=== PATIENT | male | born 1945 | race African-American/Black ===

== ENCOUNTER 2019-08-19 18:44 | Inpatient (IN) | payer OTHER, MEDICAID ==
[~2019-08-19] VITALS: Ht 172.7 cm; Wt 59.0 kg
[2019-08-19 18:49] VITALS: BP_SYST 104
[2019-08-19] MEDS ORDERED: ASPI-1153 PO (20:48)
[2019-08-19] MEDS ORDERED: MULT-976 PO (20:48)
[2019-08-19] MEDS ORDERED: DOCU-144 PO (20:48)
[2019-08-19] MEDS ORDERED: POTA20PA30 PO (20:48)
[2019-08-19] MEDS ORDERED: ASCO500T20 PO (20:48)
[2019-08-19] MEDS ORDERED: FINA5TAB3 PO (20:48)
[2019-08-19] MEDS ORDERED: MAGN400T10 PO (20:48)
[2019-08-19] MEDS ORDERED: TRAM50TA2 PO (20:48)
[2019-08-19] MEDS ORDERED: calcium carbonate PO (20:48)
[2019-08-19] MEDS ORDERED: LOVI30 SQ (20:48)
[2019-08-19] MEDS ORDERED: GABA-529 PO (20:48)
[2019-08-19] MEDS ORDERED: SPIR50TA PO (20:48)
[2019-08-19] MEDS ORDERED: POLY17PO4 PO (20:48)
[2019-08-19] MEDS ORDERED: MYL80 PO (20:48)
[2019-08-19 20:59] LABS: BASOPHILS % (AUTO) 0.4 % (0.0-2.0); EOSINOPHILS # (AUTO) 0.1 K/uL (0.0-0.4); EOSINOPHILS % (AUTO) 1.1 % (0.0-4.0); HEMATOCRIT 32.9 % (36-54); LYMPHOCYTES # (AUTO) 0.9 K/uL (1.0-5.5); LYMPHOCYTES % (AUTO) 12.6 % (20.5-51.5); MEAN CORPUSCULAR HEMOGLOBIN 28 pg (27-31); MEAN CORPUSCULAR HGB CONC 30 % (32-36); MEAN CORPUSCULAR VOLUME 91 fL (79.0-98.0); MONOCYTES # (AUTO) 0.5 K/uL (0.0-1.0); MONOCYTES % (AUTO) 6.4 % (1.7-9.3); NEUTROPHILS # (AUTO) 5.7 K/uL (1.8-7.7); NEUTROPHILS % (AUTO) 79.5 % (40.0-70.0); PLATELET COUNT (AUTO) 254 K/uL (130-430); RED BLOOD CELL COUNT(AUTO) 3.61 MIL/uL (4.2-6.2); RED CELL DISTRIBUTION WIDTH 16.8 % (9.0-15.0); WHITE BLOOD COUNT (AUTO) 7.2 K/uL (4.8-10.8)
[2019-08-19 21:20] LABS: ANION GAP 8 (5-15); CHLORIDE 107 mmol/L (98-107); CREATININE 1.54 mg/dL (0.55-1.30); GLUCOSE 126 mg/dL (70-99); POTASSIUM 5.3 mmol/L (3.5-5.1); SODIUM SERUM 139 mmol/L (136-145); UREA NITROGEN, BLOOD 33 mg/dL (8-21)
[2019-08-19 21:26] LABS: ALANINE AMINOTRANSFERASE 12 U/L (12-78); ALBUMIN 2.7 g/dL (3.4-4.8); ASPARTATE AMINOTRANSFERASE 14 U/L (10-37); TOTAL BILIRUBIN 0.3 mg/dL (0.0-1.0)
[2019-08-19 23:46] VITALS: BP_SYST 106
[2019-08-20] MEDS ORDERED: LevALBUTEROL HCL 1.25 MG/0.5 ML *CONC.* VIAL.NEB (XOPENEX CONC.) INH PRN (00:30)
[2019-08-20] MEDS ORDERED: PIPERACILLIN/TAZOBACTAM 3.375 GM/VIAL (ZOSYN) IV ONE (01:16)
[2019-08-20] MEDS: 0.45% NACL 1,000 ML IV SCH ×2 (01:31→12:56)
[2019-08-20] MEDS: PIPERACILLIN/TAZO 3.375/DEX-IS 50 ML IV SCH ×4 (01:32→17:50)
[2019-08-20] MEDS: traMADol HCL HCL 50 MG TABLET (ULTRAM) PO PRN (01:32)
[2019-08-20 02:17] VITALS: BP_SYST 105
[2019-08-20 06:26] LABS: BASOPHILS % (AUTO) 0.4 % (0.0-2.0); EOSINOPHILS % (AUTO) 0.8 % (0.0-4.0); HEMATOCRIT 30.9 % (36-54); HEMOGLOBIN 9.4 g/dL (14.0-18.0); LYMPHOCYTES # (AUTO) 1.1 K/uL (1.0-5.5); LYMPHOCYTES % (AUTO) 20.7 % (20.5-51.5); MEAN CORPUSCULAR HEMOGLOBIN 28 pg (27-31); MEAN CORPUSCULAR HGB CONC 30 % (32-36); MEAN CORPUSCULAR VOLUME 91 fL (79.0-98.0); MONOCYTES # (AUTO) 0.5 K/uL (0.0-1.0); MONOCYTES % (AUTO) 8.8 % (1.7-9.3); NEUTROPHILS # (AUTO) 3.5 K/uL (1.8-7.7); NEUTROPHILS % (AUTO) 69.3 % (40.0-70.0); PLATELET COUNT (AUTO) 201 K/uL (130-430); RED CELL DISTRIBUTION WIDTH 16.7 % (9.0-15.0); WHITE BLOOD COUNT (AUTO) 5.1 K/uL (4.8-10.8)
[2019-08-20 06:41] LABS: ALANINE AMINOTRANSFERASE 11 U/L (12-78); ALBUMIN 2.3 g/dL (3.4-4.8); ANION GAP 7 (5-15); ASPARTATE AMINOTRANSFERASE 12 U/L (10-37); CALCIUM 8.5 mg/dL (8.4-11.0); CHLORIDE 108 mmol/L (98-107); CREATININE 1.63 mg/dL (0.55-1.30); GLUCOSE 81 mg/dL (70-99); POTASSIUM 5.2 mmol/L (3.5-5.1); SODIUM SERUM 139 mmol/L (136-145); TOTAL BILIRUBIN 0.3 mg/dL (0.0-1.0); UREA NITROGEN, BLOOD 30 mg/dL (8-21)
[2019-08-20] MEDS: LevALBUTEROL HCL 1.25 MG/0.5 ML *CONC.* VIAL.NEB (XOPENEX CONC.) INH SCH ×2 (07:18→15:18)
[2019-08-20 08:00] VITALS: BP_SYST 102
[2019-08-20] MEDS: SPIRONOLACTONE 50 MG TABLET (ALDACTONE) PO SCH ×2 (08:29→21:18)
[2019-08-20] MEDS: ASPIRIN 81 MG TABLET(ECOTRIN) PO SCH (08:30)
[2019-08-20] MEDS: MAGNESIUM OXIDE 400 MG TABLET PO SCH ×2 (08:30→21:19)
[2019-08-20] MEDS: FINASTERIDE 5 MG TABLET (PROSCAR) PO SCH (08:30)
[2019-08-20] MEDS: POLYETHYLENE GLYCOL 3350, 17 GM/ POWD.PACK PO SCH ×2 (08:30→21:17)
[2019-08-20] MEDS: SIMETHICONE 80 MG TAB.CHEW PO SCH ×3 (08:30→21:19)
[2019-08-20] MEDS: MULTIVITAMINS TAB 1 TABLET PO SCH (08:30)
[2019-08-20] MEDS: GABAPENTIN 100 MG CAPSULE PO SCH ×3 (08:30→21:18)
[2019-08-20] MEDS: DOCUSATE SODIUM 100 MG CAPSULE PO SCH ×2 (08:30→21:19)
[2019-08-20] MEDS: ASCORBIC ACID 500 MG TABLET PO SCH (08:30)
[2019-08-20] MEDS: CALCIUM CARBONATE 500 MG/ TAB.CHEW PO SCH ×2 (08:30→21:19)
[2019-08-20 12:35] VITALS: BP_SYST 112
[2019-08-20 16:36] VITALS: BP_SYST 110
[2019-08-20 20:00] VITALS: BP_SYST 110
[2019-08-20] MEDS: ENOXAPARIN SODIUM 30 MG/0.3 ML SYRINGE SQ SCH (21:20)
[2019-08-21] VITALS: BP_SYST 105
[2019-08-21] MEDS: PIPERACILLIN/TAZO 3.375/DEX-IS 50 ML IV SCH ×5 (00:35→23:36)
[2019-08-21] MEDS: 0.45% NACL 1,000 ML IV SCH ×3 (00:56→20:47)
[2019-08-21] MEDS: LevALBUTEROL HCL 1.25 MG/0.5 ML *CONC.* VIAL.NEB (XOPENEX CONC.) INH SCH ×4 (01:39→23:39)
[2019-08-21 08:00] VITALS: BP_SYST 107
[2019-08-21] MEDS: SPIRONOLACTONE 50 MG TABLET (ALDACTONE) PO SCH ×2 (08:22→20:44)
[2019-08-21] MEDS: CALCIUM CARBONATE 500 MG/ TAB.CHEW PO SCH ×2 (08:22→20:43)
[2019-08-21] MEDS: MAGNESIUM OXIDE 400 MG TABLET PO SCH ×2 (08:22→20:42)
[2019-08-21] MEDS: MULTIVITAMINS TAB 1 TABLET PO SCH (08:23)
[2019-08-21] MEDS: ASPIRIN 81 MG TABLET(ECOTRIN) PO SCH (08:23)
[2019-08-21] MEDS: ASCORBIC ACID 500 MG TABLET PO SCH (08:23)
[2019-08-21] MEDS: FINASTERIDE 5 MG TABLET (PROSCAR) PO SCH (08:23)
[2019-08-21] MEDS: SIMETHICONE 80 MG TAB.CHEW PO SCH ×3 (08:23→20:43)
[2019-08-21] MEDS: GABAPENTIN 100 MG CAPSULE PO SCH ×3 (08:23→20:44)
[2019-08-21 08:25] LABS: BASOPHILS % (AUTO) 0.7 % (0.0-2.0); EOSINOPHILS # (AUTO) 0.1 K/uL (0.0-0.4); EOSINOPHILS % (AUTO) 2.5 % (0.0-4.0); HEMATOCRIT 31.4 % (36-54); HEMOGLOBIN 9.6 g/dL (14.0-18.0); LYMPHOCYTES # (AUTO) 1.7 K/uL (1.0-5.5); LYMPHOCYTES % (AUTO) 31.1 % (20.5-51.5); MEAN CORPUSCULAR HEMOGLOBIN 28 pg (27-31); MEAN CORPUSCULAR HGB CONC 31 % (32-36); MEAN CORPUSCULAR VOLUME 91 fL (79.0-98.0); MONOCYTES # (AUTO) 0.4 K/uL (0.0-1.0); MONOCYTES % (AUTO) 7.8 % (1.7-9.3); NEUTROPHILS # (AUTO) 3.2 K/uL (1.8-7.7); NEUTROPHILS % (AUTO) 57.9 % (40.0-70.0); PLATELET COUNT (AUTO) 198 K/uL (130-430); RED BLOOD CELL COUNT(AUTO) 3.46 MIL/uL (4.2-6.2); RED CELL DISTRIBUTION WIDTH 16.9 % (9.0-15.0); WHITE BLOOD COUNT (AUTO) 5.5 K/uL (4.8-10.8)
[2019-08-21] MEDS: POLYETHYLENE GLYCOL 3350, 17 GM/ POWD.PACK PO SCH ×2 (08:26→20:43)
[2019-08-21] MEDS: DOCUSATE SODIUM 100 MG CAPSULE PO SCH ×2 (08:26→20:43)
[2019-08-21 08:32] LABS: ANION GAP 9 (5-15); CALCIUM 8.3 mg/dL (8.4-11.0); CHLORIDE 106 mmol/L (98-107); CREATININE 1.36 mg/dL (0.55-1.30); GLUCOSE 88 mg/dL (70-99); SODIUM SERUM 138 mmol/L (136-145); UREA NITROGEN, BLOOD 28 mg/dL (8-21)
[2019-08-21 12:00] VITALS: BP_SYST 115
[2019-08-21 16:38] VITALS: BP_SYST 118; BP_SYST 146
[2019-08-21 20:02] VITALS: BP_SYST 106
[2019-08-21] MEDS: ENOXAPARIN SODIUM 30 MG/0.3 ML SYRINGE SQ SCH (20:45)
[2019-08-22 02:20] VITALS: BP_SYST 95
[2019-08-22] MEDS: PIPERACILLIN/TAZO 3.375/DEX-IS 50 ML IV SCH ×3 (05:37→17:39)
[2019-08-22 06:37] LABS: ANION GAP 6 (5-15); CALCIUM 8.1 mg/dL (8.4-11.0); CHLORIDE 107 mmol/L (98-107); CREATININE 1.19 mg/dL (0.55-1.30); GLUCOSE 81 mg/dL (70-99); POTASSIUM 3.3 mmol/L (3.5-5.1); SODIUM SERUM 136 mmol/L (136-145); UREA NITROGEN, BLOOD 26 mg/dL (8-21)
[2019-08-22] MEDS: LevALBUTEROL HCL 1.25 MG/0.5 ML *CONC.* VIAL.NEB (XOPENEX CONC.) INH SCH ×2 (07:35→15:12)
[2019-08-22 08:00] VITALS: BP_SYST 114
[2019-08-22] MEDS: CALCIUM CARBONATE 500 MG/ TAB.CHEW PO SCH ×2 (08:43→19:56)
[2019-08-22] MEDS: ASCORBIC ACID 500 MG TABLET PO SCH (08:43)
[2019-08-22] MEDS: MULTIVITAMINS TAB 1 TABLET PO SCH (08:43)
[2019-08-22] MEDS: MAGNESIUM OXIDE 400 MG TABLET PO SCH ×2 (08:43→19:56)
[2019-08-22] MEDS: ASPIRIN 81 MG TABLET(ECOTRIN) PO SCH (08:43)
[2019-08-22] MEDS: DOCUSATE SODIUM 100 MG CAPSULE PO SCH ×2 (08:44→20:01)
[2019-08-22] MEDS: GABAPENTIN 100 MG CAPSULE PO SCH ×3 (08:44→19:56)
[2019-08-22] MEDS: SIMETHICONE 80 MG TAB.CHEW PO SCH ×3 (08:44→19:56)
[2019-08-22] MEDS: FINASTERIDE 5 MG TABLET (PROSCAR) PO SCH (08:45)
[2019-08-22] MEDS: POLYETHYLENE GLYCOL 3350, 17 GM/ POWD.PACK PO SCH ×2 (08:45→19:57)
[2019-08-22] MEDS: SPIRONOLACTONE 50 MG TABLET (ALDACTONE) PO SCH ×2 (08:45→19:57)
[2019-08-22 12:45] VITALS: BP_SYST 103
[2019-08-22 16:55] VITALS: BP_SYST 109
[2019-08-22] MEDS ORDERED: POTASSIUM CHLORIDE 20 MEQ/PKT PACKET PO ONE (17:30)
[2019-08-22] MEDS: 0.45% NACL 1,000 ML IV SCH (17:39)
[2019-08-22 19:53] VITALS: BP_SYST 112
[2019-08-22] MEDS: traMADol HCL HCL 50 MG TABLET (ULTRAM) PO PRN (19:56)
[2019-08-22] MEDS: ENOXAPARIN SODIUM 30 MG/0.3 ML SYRINGE SQ SCH (20:00)
[2019-08-23] MEDS: PIPERACILLIN/TAZO 3.375/DEX-IS 50 ML IV SCH ×4 (00:18→17:05)
[2019-08-23 01:47] VITALS: BP_SYST 115
[2019-08-23] MEDS: 0.45% NACL 1,000 ML IV SCH ×2 (04:57→17:05)
[2019-08-23 07:32] LABS: BASOPHILS # (AUTO) 0.1 K/uL (0.0-0.2); BASOPHILS % (AUTO) 1.2 % (0.0-2.0); EOSINOPHILS # (AUTO) 0.2 K/uL (0.0-0.4); EOSINOPHILS % (AUTO) 4.2 % (0.0-4.0); HEMATOCRIT 29.4 % (36-54); HEMOGLOBIN 8.9 g/dL (14.0-18.0); LYMPHOCYTES # (AUTO) 1.7 K/uL (1.0-5.5); LYMPHOCYTES % (AUTO) 32.8 % (20.5-51.5); MEAN CORPUSCULAR HEMOGLOBIN 27 pg (27-31); MEAN CORPUSCULAR HGB CONC 30 % (32-36); MEAN CORPUSCULAR VOLUME 90 fL (79.0-98.0); MONOCYTES # (AUTO) 0.5 K/uL (0.0-1.0); MONOCYTES % (AUTO) 9.2 % (1.7-9.3); NEUTROPHILS # (AUTO) 2.8 K/uL (1.8-7.7); NEUTROPHILS % (AUTO) 52.6 % (40.0-70.0); PLATELET COUNT (AUTO) 208 K/uL (130-430); RED BLOOD CELL COUNT(AUTO) 3.25 MIL/uL (4.2-6.2); RED CELL DISTRIBUTION WIDTH 16.8 % (9.0-15.0); WHITE BLOOD COUNT (AUTO) 5.3 K/uL (4.8-10.8)
[2019-08-23] MEDS: LevALBUTEROL HCL 1.25 MG/0.5 ML *CONC.* VIAL.NEB (XOPENEX CONC.) INH SCH ×3 (07:41→23:41)
[2019-08-23 07:53] VITALS: BP_SYST 112
[2019-08-23 07:53] LABS: ANION GAP 8 (5-15); CALCIUM 7.9 mg/dL (8.4-11.0); CHLORIDE 106 mmol/L (98-107); CREATININE 1.55 mg/dL (0.55-1.30); GLUCOSE 77 mg/dL (70-99); POTASSIUM 3.8 mmol/L (3.5-5.1); SODIUM SERUM 139 mmol/L (136-145); UREA NITROGEN, BLOOD 28 mg/dL (8-21)
[2019-08-23] MEDS: ASPIRIN 81 MG TABLET(ECOTRIN) PO SCH (08:34)
[2019-08-23] MEDS: MAGNESIUM OXIDE 400 MG TABLET PO SCH ×2 (08:34→20:23)
[2019-08-23] MEDS: CALCIUM CARBONATE 500 MG/ TAB.CHEW PO SCH ×2 (08:34→20:24)
[2019-08-23] MEDS: SIMETHICONE 80 MG TAB.CHEW PO SCH ×3 (08:34→20:24)
[2019-08-23] MEDS: SPIRONOLACTONE 50 MG TABLET (ALDACTONE) PO SCH ×2 (08:34→20:25)
[2019-08-23] MEDS: GABAPENTIN 100 MG CAPSULE PO SCH ×3 (08:35→20:23)
[2019-08-23] MEDS: ASCORBIC ACID 500 MG TABLET PO SCH (08:35)
[2019-08-23] MEDS: DOCUSATE SODIUM 100 MG CAPSULE PO SCH ×2 (08:35→20:25)
[2019-08-23] MEDS: MULTIVITAMINS TAB 1 TABLET PO SCH (08:35)
[2019-08-23] MEDS: POLYETHYLENE GLYCOL 3350, 17 GM/ POWD.PACK PO SCH ×2 (08:35→20:26)
[2019-08-23] MEDS: FINASTERIDE 5 MG TABLET (PROSCAR) PO SCH (08:35)
[2019-08-23 12:36] VITALS: BP_SYST 125
[2019-08-23] MEDS: traMADol HCL HCL 50 MG TABLET (ULTRAM) PO PRN (13:15)
[2019-08-23 15:15] VITALS: BP_SYST 125
[2019-08-23 16:32] VITALS: BP_SYST 117
[2019-08-23] MEDS: ENOXAPARIN SODIUM 30 MG/0.3 ML SYRINGE SQ SCH (20:25)
[2019-08-24] MEDS: PIPERACILLIN/TAZO 3.375/DEX-IS 50 ML IV SCH ×3 (00:17→13:11)
[2019-08-24 00:26] VITALS: BP_SYST 111
[2019-08-24] MEDS: 0.45% NACL 1,000 ML IV SCH (05:23)
[2019-08-24] MEDS: LevALBUTEROL HCL 1.25 MG/0.5 ML *CONC.* VIAL.NEB (XOPENEX CONC.) INH SCH ×3 (07:28→23:51)
[2019-08-24 07:49] VITALS: BP_SYST 134
[2019-08-24] MEDS: MULTIVITAMINS TAB 1 TABLET PO SCH (09:48)
[2019-08-24] MEDS: DOCUSATE SODIUM 100 MG CAPSULE PO SCH ×2 (09:49→21:00)
[2019-08-24] MEDS: SIMETHICONE 80 MG TAB.CHEW PO SCH ×3 (09:49→21:38)
[2019-08-24] MEDS: ASCORBIC ACID 500 MG TABLET PO SCH (09:49)
[2019-08-24] MEDS: SPIRONOLACTONE 50 MG TABLET (ALDACTONE) PO SCH ×2 (09:49→21:22)
[2019-08-24] MEDS: CALCIUM CARBONATE 500 MG/ TAB.CHEW PO SCH ×2 (09:49→21:22)
[2019-08-24] MEDS: MAGNESIUM OXIDE 400 MG TABLET PO SCH ×2 (09:49→21:22)
[2019-08-24] MEDS: ASPIRIN 81 MG TABLET(ECOTRIN) PO SCH (09:49)
[2019-08-24] MEDS: GABAPENTIN 100 MG CAPSULE PO SCH ×3 (09:49→21:38)
[2019-08-24] MEDS: FINASTERIDE 5 MG TABLET (PROSCAR) PO SCH (09:50)
[2019-08-24] MEDS: POLYETHYLENE GLYCOL 3350, 17 GM/ POWD.PACK PO SCH ×2 (09:50→21:00)
[2019-08-24] MEDS: BALSAM PERU/CASTOR OIL 60 GM OINT...G. TP SCH (09:52)
[2019-08-24 12:26] VITALS: BP_SYST 110
[2019-08-24 16:33] VITALS: BP_SYST 112
[2019-08-24 20:00] VITALS: BP_SYST 106
[2019-08-24] MEDS: ENOXAPARIN SODIUM 30 MG/0.3 ML SYRINGE SQ SCH (21:35)
[2019-08-25] MEDS: PIPERACILLIN/TAZO 3.375/DEX-IS 50 ML IV SCH ×4 (00:04→18:04)
[2019-08-25] MEDS: 0.45% NACL 1,000 ML IV SCH ×2 (00:08→12:53)
[2019-08-25 02:07] VITALS: BP_SYST 110
[2019-08-25 04:00] VITALS: BP_SYST 101
[2019-08-25] MEDS: LevALBUTEROL HCL 1.25 MG/0.5 ML *CONC.* VIAL.NEB (XOPENEX CONC.) INH SCH ×3 (07:22→23:15)
[2019-08-25 07:23] LABS: BASOPHILS # (AUTO) 0.1 K/uL (0.0-0.2); BASOPHILS % (AUTO) 1.4 % (0.0-2.0); EOSINOPHILS # (AUTO) 0.2 K/uL (0.0-0.4); EOSINOPHILS % (AUTO) 4.8 % (0.0-4.0); HEMATOCRIT 29.9 % (36-54); HEMOGLOBIN 9.2 g/dL (14.0-18.0); LYMPHOCYTES # (AUTO) 1.6 K/uL (1.0-5.5); LYMPHOCYTES % (AUTO) 33.5 % (20.5-51.5); MEAN CORPUSCULAR HEMOGLOBIN 28 pg (27-31); MEAN CORPUSCULAR HGB CONC 31 % (32-36); MEAN CORPUSCULAR VOLUME 90 fL (79.0-98.0); MONOCYTES # (AUTO) 0.3 K/uL (0.0-1.0); MONOCYTES % (AUTO) 6.6 % (1.7-9.3); NEUTROPHILS # (AUTO) 2.5 K/uL (1.8-7.7); NEUTROPHILS % (AUTO) 53.7 % (40.0-70.0); PLATELET COUNT (AUTO) 210 K/uL (130-430); RED BLOOD CELL COUNT(AUTO) 3.32 MIL/uL (4.2-6.2); RED CELL DISTRIBUTION WIDTH 16.9 % (9.0-15.0); WHITE BLOOD COUNT (AUTO) 4.7 K/uL (4.8-10.8)
[2019-08-25 07:26] LABS: ANION GAP 8 (5-15); CALCIUM 8.1 mg/dL (8.4-11.0); CHLORIDE 107 mmol/L (98-107); GLUCOSE 93 mg/dL (70-99); SODIUM SERUM 141 mmol/L (136-145); UREA NITROGEN, BLOOD 26 mg/dL (8-21)
[2019-08-25 08:00] VITALS: BP_SYST 117
[2019-08-25] MEDS: BALSAM PERU/CASTOR OIL 60 GM OINT...G. TP SCH (08:54)
[2019-08-25] MEDS: ASPIRIN 81 MG TABLET(ECOTRIN) PO SCH (08:54)
[2019-08-25] MEDS: GABAPENTIN 100 MG CAPSULE PO SCH ×3 (08:55→22:28)
[2019-08-25] MEDS: ASCORBIC ACID 500 MG TABLET PO SCH (08:55)
[2019-08-25] MEDS: CALCIUM CARBONATE 500 MG/ TAB.CHEW PO SCH ×2 (08:55→22:29)
[2019-08-25] MEDS: MULTIVITAMINS TAB 1 TABLET PO SCH (08:55)
[2019-08-25] MEDS: SPIRONOLACTONE 50 MG TABLET (ALDACTONE) PO SCH ×2 (08:55→22:27)
[2019-08-25] MEDS: MAGNESIUM OXIDE 400 MG TABLET PO SCH ×2 (08:55→22:28)
[2019-08-25] MEDS: SIMETHICONE 80 MG TAB.CHEW PO SCH ×3 (08:55→22:27)
[2019-08-25] MEDS: FINASTERIDE 5 MG TABLET (PROSCAR) PO SCH (08:55)
[2019-08-25] MEDS: DOCUSATE SODIUM 100 MG CAPSULE PO SCH ×2 (09:00→21:00)
[2019-08-25] MEDS: POLYETHYLENE GLYCOL 3350, 17 GM/ POWD.PACK PO SCH ×2 (09:00→21:00)
[2019-08-25 12:54] VITALS: BP_SYST 113
[2019-08-25 16:52] VITALS: BP_SYST 116
[2019-08-25 20:00] VITALS: BP_SYST 127
[2019-08-25] MEDS: ENOXAPARIN SODIUM 30 MG/0.3 ML SYRINGE SQ SCH (22:32)
[2019-08-25] MEDS: metroNIDAZOLE 500 MG TABLET PO SCH (22:34)
[2019-08-26 00:42] VITALS: BP_SYST 125
[2019-08-26] MEDS: PIPERACILLIN/TAZO 3.375/DEX-IS 50 ML IV SCH ×3 (00:59→11:54)
[2019-08-26] MEDS: 0.45% NACL 1,000 ML IV SCH ×2 (01:00→14:34)
[2019-08-26] MEDS: metroNIDAZOLE 500 MG TABLET PO SCH ×3 (05:36→21:30)
[2019-08-26] MEDS: LevALBUTEROL HCL 1.25 MG/0.5 ML *CONC.* VIAL.NEB (XOPENEX CONC.) INH SCH ×2 (07:28→14:02)
[2019-08-26 07:45] VITALS: BP_SYST 114
[2019-08-26] MEDS: POLYETHYLENE GLYCOL 3350, 17 GM/ POWD.PACK PO SCH ×3 (09:00→21:34)
[2019-08-26] MEDS: DOCUSATE SODIUM 100 MG CAPSULE PO SCH ×3 (09:00→21:33)
[2019-08-26] MEDS: CALCIUM CARBONATE 500 MG/ TAB.CHEW PO SCH ×2 (09:58→21:30)
[2019-08-26] MEDS: SPIRONOLACTONE 50 MG TABLET (ALDACTONE) PO SCH ×2 (09:59→21:31)
[2019-08-26] MEDS: GABAPENTIN 100 MG CAPSULE PO SCH ×3 (09:59→21:32)
[2019-08-26] MEDS: MULTIVITAMINS TAB 1 TABLET PO SCH (09:59)
[2019-08-26] MEDS: ASPIRIN 81 MG TABLET(ECOTRIN) PO SCH (09:59)
[2019-08-26] MEDS: FINASTERIDE 5 MG TABLET (PROSCAR) PO SCH (09:59)
[2019-08-26] MEDS: ASCORBIC ACID 500 MG TABLET PO SCH (09:59)
[2019-08-26] MEDS: MAGNESIUM OXIDE 400 MG TABLET PO SCH ×2 (09:59→21:47)
[2019-08-26] MEDS: SIMETHICONE 80 MG TAB.CHEW PO SCH ×3 (09:59→21:30)
[2019-08-26] MEDS: BALSAM PERU/CASTOR OIL 60 GM OINT...G. TP SCH (10:00)
[2019-08-26 12:30] VITALS: BP_SYST 111
[2019-08-26 17:23] VITALS: BP_SYST 125
[2019-08-26 20:00] VITALS: BP_SYST 126
[2019-08-26] MEDS: LACTOBACILLUS RHAMNOSUS GG 1 CAP CAPSULE PO SCH (21:31)
[2019-08-26] MEDS: ENOXAPARIN SODIUM 30 MG/0.3 ML SYRINGE SQ SCH (21:33)
[2019-08-27] VITALS: BP_SYST 125
[2019-08-27] MEDS: LevALBUTEROL HCL 1.25 MG/0.5 ML *CONC.* VIAL.NEB (XOPENEX CONC.) INH SCH ×3 (01:31→14:00)
[2019-08-27] MEDS: 0.45% NACL 1,000 ML IV SCH ×2 (03:36→14:52)
[2019-08-27] MEDS: metroNIDAZOLE 500 MG TABLET PO SCH ×3 (06:02→21:18)
[2019-08-27 06:32] LABS: BASOPHILS # (AUTO) 0.1 K/uL (0.0-0.2); BASOPHILS % (AUTO) 1.5 % (0.0-2.0); EOSINOPHILS # (AUTO) 0.3 K/uL (0.0-0.4); EOSINOPHILS % (AUTO) 5.4 % (0.0-4.0); HEMATOCRIT 27.5 % (36-54); HEMOGLOBIN 8.6 g/dL (14.0-18.0); LYMPHOCYTES # (AUTO) 1.4 K/uL (1.0-5.5); LYMPHOCYTES % (AUTO) 28.1 % (20.5-51.5); MEAN CORPUSCULAR HEMOGLOBIN 28 pg (27-31); MEAN CORPUSCULAR HGB CONC 31 % (32-36); MEAN CORPUSCULAR VOLUME 91 fL (79.0-98.0); MONOCYTES # (AUTO) 0.3 K/uL (0.0-1.0); MONOCYTES % (AUTO) 6.9 % (1.7-9.3); NEUTROPHILS # (AUTO) 2.9 K/uL (1.8-7.7); NEUTROPHILS % (AUTO) 58.1 % (40.0-70.0); PLATELET COUNT (AUTO) 214 K/uL (130-430); RED BLOOD CELL COUNT(AUTO) 3.05 MIL/uL (4.2-6.2)
[2019-08-27 06:38] LABS: ANION GAP 6 (5-15); CALCIUM 8.1 mg/dL (8.4-11.0); CHLORIDE 107 mmol/L (98-107); CREATININE 1.13 mg/dL (0.55-1.30); GLUCOSE 98 mg/dL (70-99); POTASSIUM 3.5 mmol/L (3.5-5.1); SODIUM SERUM 142 mmol/L (136-145); UREA NITROGEN, BLOOD 27 mg/dL (8-21)
[2019-08-27 08:00] VITALS: BP_SYST 128
[2019-08-27] MEDS: DOCUSATE SODIUM 100 MG CAPSULE PO SCH ×2 (09:00→21:00)
[2019-08-27] MEDS: POLYETHYLENE GLYCOL 3350, 17 GM/ POWD.PACK PO SCH ×2 (09:00→21:00)
[2019-08-27] MEDS: BALSAM PERU/CASTOR OIL 60 GM OINT...G. TP SCH (09:03)
[2019-08-27] MEDS: MULTIVITAMINS TAB 1 TABLET PO SCH (09:04)
[2019-08-27] MEDS: GABAPENTIN 100 MG CAPSULE PO SCH ×3 (09:04→21:19)
[2019-08-27] MEDS: SPIRONOLACTONE 50 MG TABLET (ALDACTONE) PO SCH ×2 (09:04→21:19)
[2019-08-27] MEDS: SIMETHICONE 80 MG TAB.CHEW PO SCH ×3 (09:04→21:19)
[2019-08-27] MEDS: CALCIUM CARBONATE 500 MG/ TAB.CHEW PO SCH ×2 (09:04→21:19)
[2019-08-27] MEDS: LACTOBACILLUS RHAMNOSUS GG 1 CAP CAPSULE PO SCH ×2 (09:04→21:19)
[2019-08-27] MEDS: MAGNESIUM OXIDE 400 MG TABLET PO SCH ×2 (09:05→21:19)
[2019-08-27] MEDS: ASPIRIN 81 MG TABLET(ECOTRIN) PO SCH (09:05)
[2019-08-27] MEDS: ASCORBIC ACID 500 MG TABLET PO SCH (09:05)
[2019-08-27] MEDS: FINASTERIDE 5 MG TABLET (PROSCAR) PO SCH (09:05)
[2019-08-27] MEDS: traMADol HCL HCL 50 MG TABLET (ULTRAM) PO PRN ×2 (09:18→21:29)
[2019-08-27 12:00] VITALS: BP_SYST 113
[2019-08-27 16:22] VITALS: BP_SYST 120
[2019-08-27 20:00] VITALS: BP_SYST 108
[2019-08-27] MEDS: ENOXAPARIN SODIUM 30 MG/0.3 ML SYRINGE SQ SCH (21:20)
[2019-08-28 00:32] VITALS: BP_SYST 111
[2019-08-28] MEDS: LevALBUTEROL HCL 1.25 MG/0.5 ML *CONC.* VIAL.NEB (XOPENEX CONC.) INH SCH ×3 (03:14→16:28)
[2019-08-28] MEDS: 0.45% NACL 1,000 ML IV SCH ×2 (03:57→16:47)
[2019-08-28] MEDS: metroNIDAZOLE 500 MG TABLET PO SCH ×3 (06:35→21:21)
[2019-08-28 07:11] LABS: BASOPHILS # (AUTO) 0.1 K/uL (0.0-0.2); BASOPHILS % (AUTO) 1.2 % (0.0-2.0); EOSINOPHILS # (AUTO) 0.2 K/uL (0.0-0.4); EOSINOPHILS % (AUTO) 3.9 % (0.0-4.0); HEMATOCRIT 27.8 % (36-54); HEMOGLOBIN 8.5 g/dL (14.0-18.0); LYMPHOCYTES # (AUTO) 1.8 K/uL (1.0-5.5); LYMPHOCYTES % (AUTO) 28.8 % (20.5-51.5); MEAN CORPUSCULAR HEMOGLOBIN 28 pg (27-31); MEAN CORPUSCULAR HGB CONC 31 % (32-36); MEAN CORPUSCULAR VOLUME 91 fL (79.0-98.0); MONOCYTES # (AUTO) 0.5 K/uL (0.0-1.0); MONOCYTES % (AUTO) 8.5 % (1.7-9.3); NEUTROPHILS # (AUTO) 3.6 K/uL (1.8-7.7); NEUTROPHILS % (AUTO) 57.6 % (40.0-70.0); PLATELET COUNT (AUTO) 205 K/uL (130-430); RED BLOOD CELL COUNT(AUTO) 3.05 MIL/uL (4.2-6.2); RED CELL DISTRIBUTION WIDTH 16.8 % (9.0-15.0); WHITE BLOOD COUNT (AUTO) 6.2 K/uL (4.8-10.8)
[2019-08-28 07:26] LABS: ANION GAP 8 (5-15); CALCIUM 8.4 mg/dL (8.4-11.0); CHLORIDE 105 mmol/L (98-107); CREATININE 1.09 mg/dL (0.55-1.30); GLUCOSE 80 mg/dL (70-99); POTASSIUM 3.5 mmol/L (3.5-5.1); SODIUM SERUM 142 mmol/L (136-145); UREA NITROGEN, BLOOD 39 mg/dL (8-21)
[2019-08-28 07:44] LABS: TOTAL IRON BIND. CAPACITY 181 ug/dL (250-450)
[2019-08-28 08:11] VITALS: BP_SYST 123
[2019-08-28] MEDS: FINASTERIDE 5 MG TABLET (PROSCAR) PO SCH (08:59)
[2019-08-28] MEDS: GABAPENTIN 100 MG CAPSULE PO SCH ×3 (08:59→21:21)
[2019-08-28] MEDS: MAGNESIUM OXIDE 400 MG TABLET PO SCH ×2 (08:59→21:20)
[2019-08-28] MEDS: LACTOBACILLUS RHAMNOSUS GG 1 CAP CAPSULE PO SCH ×2 (08:59→21:20)
[2019-08-28] MEDS: SIMETHICONE 80 MG TAB.CHEW PO SCH ×3 (08:59→21:20)
[2019-08-28] MEDS: ASCORBIC ACID 500 MG TABLET PO SCH (08:59)
[2019-08-28] MEDS: MULTIVITAMINS TAB 1 TABLET PO SCH (08:59)
[2019-08-28] MEDS: ASPIRIN 81 MG TABLET(ECOTRIN) PO SCH (08:59)
[2019-08-28] MEDS: CALCIUM CARBONATE 500 MG/ TAB.CHEW PO SCH ×2 (09:00→21:20)
[2019-08-28] MEDS: SPIRONOLACTONE 50 MG TABLET (ALDACTONE) PO SCH ×2 (09:00→21:21)
[2019-08-28] MEDS: POLYETHYLENE GLYCOL 3350, 17 GM/ POWD.PACK PO SCH (09:00)
[2019-08-28] MEDS: DOCUSATE SODIUM 100 MG CAPSULE PO SCH (09:00)
[2019-08-28] MEDS: BALSAM PERU/CASTOR OIL 60 GM OINT...G. TP SCH (12:08)
[2019-08-28 13:23] VITALS: BP_SYST 109
[2019-08-28 16:27] VITALS: BP_SYST 121
[2019-08-28 20:00] VITALS: BP_SYST 128
[2019-08-28] MEDS: ENOXAPARIN SODIUM 30 MG/0.3 ML SYRINGE SQ SCH (21:19)
[2019-08-29 00:30] VITALS: BP_SYST 127
[2019-08-29] MEDS: LevALBUTEROL HCL 1.25 MG/0.5 ML *CONC.* VIAL.NEB (XOPENEX CONC.) INH SCH ×4 (01:51→23:08)
[2019-08-29] MEDS: metroNIDAZOLE 500 MG TABLET PO SCH ×3 (05:57→21:15)
[2019-08-29 08:00] VITALS: BP_SYST 107
[2019-08-29] MEDS: ASCORBIC ACID 500 MG TABLET PO SCH (09:40)
[2019-08-29] MEDS: LACTOBACILLUS RHAMNOSUS GG 1 CAP CAPSULE PO SCH ×2 (09:41→21:15)
[2019-08-29] MEDS: FINASTERIDE 5 MG TABLET (PROSCAR) PO SCH (09:41)
[2019-08-29] MEDS: GABAPENTIN 100 MG CAPSULE PO SCH ×3 (09:41→21:15)
[2019-08-29] MEDS: SPIRONOLACTONE 50 MG TABLET (ALDACTONE) PO SCH ×2 (09:42→21:16)
[2019-08-29] MEDS: MULTIVITAMINS TAB 1 TABLET PO SCH (09:42)
[2019-08-29] MEDS: ASPIRIN 81 MG TABLET(ECOTRIN) PO SCH (09:42)
[2019-08-29] MEDS: SIMETHICONE 80 MG TAB.CHEW PO SCH ×3 (09:42→21:15)
[2019-08-29] MEDS: MAGNESIUM OXIDE 400 MG TABLET PO SCH ×2 (09:43→21:15)
[2019-08-29] MEDS: CALCIUM CARBONATE 500 MG/ TAB.CHEW PO SCH ×2 (09:43→21:15)
[2019-08-29] MEDS: BALSAM PERU/CASTOR OIL 60 GM OINT...G. TP SCH (09:43)
[2019-08-29] MEDS: 0.45% NACL 1,000 ML IV SCH ×2 (09:44→21:16)
[2019-08-29] MEDS ORDERED: LOPERAMIDE HCL 2 MG CAPSULE PO PRN (12:00)
[2019-08-29 12:50] VITALS: BP_SYST 107
[2019-08-29 13:56] VITALS: BP_SYST 114
[2019-08-29 16:56] VITALS: BP_SYST 133
[2019-08-29] MEDS: ENOXAPARIN SODIUM 30 MG/0.3 ML SYRINGE SQ SCH (21:15)
[2019-08-30 00:34] VITALS: BP_SYST 130
[2019-08-30] MEDS: metroNIDAZOLE 500 MG TABLET PO SCH ×2 (06:03→14:33)
[2019-08-30 07:54] LABS: BASOPHILS # (AUTO) 0.1 K/uL (0.0-0.2); BASOPHILS % (AUTO) 1.4 % (0.0-2.0); EOSINOPHILS # (AUTO) 0.2 K/uL (0.0-0.4); EOSINOPHILS % (AUTO) 3.5 % (0.0-4.0); HEMATOCRIT 29.8 % (36-54); HEMOGLOBIN 9.3 g/dL (14.0-18.0); LYMPHOCYTES # (AUTO) 1.5 K/uL (1.0-5.5); LYMPHOCYTES % (AUTO) 23.8 % (20.5-51.5); MEAN CORPUSCULAR HEMOGLOBIN 28 pg (27-31); MEAN CORPUSCULAR HGB CONC 31 % (32-36); MEAN CORPUSCULAR VOLUME 91 fL (79.0-98.0); MONOCYTES # (AUTO) 0.3 K/uL (0.0-1.0); MONOCYTES % (AUTO) 5.3 % (1.7-9.3); NEUTROPHILS # (AUTO) 4.3 K/uL (1.8-7.7); PLATELET COUNT (AUTO) 246 K/uL (130-430); RED BLOOD CELL COUNT(AUTO) 3.29 MIL/uL (4.2-6.2); RED CELL DISTRIBUTION WIDTH 16.9 % (9.0-15.0); WHITE BLOOD COUNT (AUTO) 6.5 K/uL (4.8-10.8)
[2019-08-30 07:55] VITALS: BP_SYST 113
[2019-08-30 08:00] LABS: ANION GAP 4 (5-15); CALCIUM 8.7 mg/dL (8.4-11.0); CHLORIDE 104 mmol/L (98-107); CREATININE 1.07 mg/dL (0.55-1.30); GLUCOSE 87 mg/dL (70-99); POTASSIUM 4.4 mmol/L (3.5-5.1); SODIUM SERUM 142 mmol/L (136-145); UREA NITROGEN, BLOOD 39 mg/dL (8-21)
[2019-08-30 08:07] LABS: FOLATE (FOLIC ACID) 10.5 ng/mL (>3.0)
[2019-08-30] MEDS: ASPIRIN 81 MG TABLET(ECOTRIN) PO SCH (09:20)
[2019-08-30] MEDS: GABAPENTIN 100 MG CAPSULE PO SCH ×2 (09:20→14:44)
[2019-08-30] MEDS: MAGNESIUM OXIDE 400 MG TABLET PO SCH (09:21)
[2019-08-30] MEDS: SPIRONOLACTONE 50 MG TABLET (ALDACTONE) PO SCH (09:21)
[2019-08-30] MEDS: CALCIUM CARBONATE 500 MG/ TAB.CHEW PO SCH (09:21)
[2019-08-30] MEDS: MULTIVITAMINS TAB 1 TABLET PO SCH (09:21)
[2019-08-30] MEDS: LACTOBACILLUS RHAMNOSUS GG 1 CAP CAPSULE PO SCH (09:22)
[2019-08-30] MEDS: SIMETHICONE 80 MG TAB.CHEW PO SCH ×2 (09:22→14:44)
[2019-08-30] MEDS: FINASTERIDE 5 MG TABLET (PROSCAR) PO SCH (09:22)
[2019-08-30] MEDS: ASCORBIC ACID 500 MG TABLET PO SCH (09:22)
[2019-08-30] MEDS: BALSAM PERU/CASTOR OIL 60 GM OINT...G. TP SCH (09:23)
[2019-08-30] MEDS: LevALBUTEROL HCL 1.25 MG/0.5 ML *CONC.* VIAL.NEB (XOPENEX CONC.) INH SCH ×2 (11:21→15:41)
[2019-08-30 13:19] VITALS: BP_SYST 103
[2019-08-30] MEDS: 0.45% NACL 1,000 ML IV SCH (14:38)
[2019-08-30 17:08] VITALS: BP_SYST 118
[2019-08-30 20:29] VITALS: BP_SYST 132
== END 2019-08-30 21:00 | DRG 177 ==
LOC: SED 18:44 → STU 22:16 → SMU 08-22 12:35
PROVIDERS: ADMIT Family Medicine; ATTEND Family Medicine
DX: J69.0 Pneumonitis due to inhalation of food and vomit (principal); E43 Unspecified severe protein-calorie malnutrition; J44.1 Chronic obstructive pulmonary disease with (acute) exacerbation; Z68.1 Body mass index [BMI] 19.9 or less, adult; I10 Essential (primary) hypertension; D50.9 Iron deficiency anemia, unspecified; L89.159 Pressure ulcer of sacral region, unspecified stage; I25.10 Atherosclerotic heart disease of native coronary artery without angina pectoris; K52.9 Noninfective gastroenteritis and colitis, unspecified; G62.9 Polyneuropathy, unspecified; K21.9 Gastro-esophageal reflux disease without esophagitis; Z87.891 Personal history of nicotine dependence; Z95.0 Presence of cardiac pacemaker; Z79.899 Other long term (current) drug therapy; Z79.82 Long term (current) use of aspirin; Z86.73 Personal history of transient ischemic attack (TIA), and cerebral infarction without residual deficits
CPT/HCPCS: 36415; 71045; 80048; 80053; 82607; 82728; 82746; 83540-TC; 83550-TC; 83605; 83735-TC; 85025; 87040-TC; 87081; 87230-TC; 93005; 94640; 94760; 96365; 97110-GP; 97112-GP; 97116-GP; 97530-GP; 99285; G0378; J1650; J1956; J2543; J7030; J7612